=== PATIENT | female | born 1955 | race Caucasian/White ===

== ENCOUNTER → 2019-04-01 13:10 | Outpatient (CLI) | payer MEDICARE, MEDICAID, SELFPAY ==
[2019-04-01 14:09] LABS: Basophils # 0.1 K/mm3 (0-0.2); Basophils % 0.9 % (0.1-2.0); Eosinophils # 0.3 K/mm3 (0.0-0.4); Eosinophils % 5.7 % (0.1-12.0); Hematocrit 44.3 % (37.0-47.0); Hemoglobin 14.4 g/dL (12.2-16.2); Lymphocytes # 1.3 K/mm3 (0.7-4.5); Lymphocytes % 23.4 % (10-50); Mean Corpuscular HGB Conc 32.5 g/dL (31.8-35.4); Mean Corpuscular Hemoglobin 31.3 pg (27.0-31.2); Mean Corpuscular Volume 96.5 fl (81-99); Mean Platelet Volume 9.2 fl (7.4-10.4); Monocytes # 0.2 K/mm3 (0.1-1.0); Neutrophils # 3.6 K/mm3 (1.8-7.8); Platelet Count 232 K/mm3 (142-424); Red Blood Count 4.59 M/mm3 (4.20-5.40); Red Cell Distribution Width 13.4 % (11.5-17.5); White Blood Count 5.5 K/mm3 (4.8-10.8)
[2019-04-01 14:18] LABS: Alanine Aminotransferase 19 U/L (12-78); Albumin Level 4.1 gm/dL (3.4-5.0); Albumin/Globulin Ratio 1.1 (1.1-1.8); Alkaline Phosphatase 134 U/L (46-116); Anion Gap 12.5 mEq/L (5-15); Aspartate Amino Transferase 28 U/L (15-37); Bilirubin,Total 0.4 mg/dL (0.2-1.0); Blood Urea Nitrogen 11 mg/dL (7-18); Calcium 9.1 mg/dL (8.5-10.1); Carbon Dioxide 30 mmol/L (21.0-32.0); Chloride 106 mmol/L (98-107); Chol/HDL Ratio 3.9 (1-3.5); Cholesterol 191 mg/dL (140-200); Creatinine,Serum 0.85 mg/dL (0.55-1.02); Estimated Glomerular Filt Rate 67 ml/min (>60); Free T4 (Free Thyroxine) 0.95 ng/dl (0.76-1.46); GFR (African American) 81 ML/MIN (>60); Globulin 3.7 gm/dl (1.3-3.2); Glucose 83 mg/dL (74-106); HDL Cholesterol 49 mg/dL (29-89); LDL Cholesterol 118 mg/dL (0-130); Potassium 3.5 mmoL/L (3.5-5.1); Sodium 145 mmol/L (136-145); Thyroid Stimulating Hormone 2.54 uIU/ml (0.358-3.740); Total Protein,Serum 7.8 gm/dL (6.4-8.2); Triglycerides 119 mg/dL (30-200); VLDL Cholesterol 24 mg/dL (0-40)
[2019-04-01 14:39] LABS: Erythrocyte Sedimentation Rate 60 mm/hr (0-30)
[2019-04-02 10:49] LABS: Vitamin D 25 Hydroxy 8.7 ng/mL (30.0-100.0)
== END ==
PROVIDERS: Visit Provider Emergency Medicine
DX: R53.83 Other fatigue (principal); E78.5 Hyperlipidemia, unspecified; R41.3 Other amnesia; R59.9 Enlarged lymph nodes, unspecified; E55.9 Vitamin D deficiency, unspecified
CPT/HCPCS: 80053; 80061; 82652; 84439; 84443; 85025; 85651; 87086

== ENCOUNTER → 2019-04-04 10:25 | Outpatient (CLI) | payer MEDICARE, MEDICAID, SELFPAY ==
--- NOTE | 2019-04-04 10:25 | CT_ITS ---
PROCEDURE: CT SOFT TISSUE NECK W CON CLINICAL HISTORY: abnormal lymph nodes in neck Lymphadenopathy COMPARISON: No exams were available for comparison TECHNIQUE: Oral Contrast: None IV Contrast: 75 mL Optiray 350 Axial images obtained with sagittal and coronal reformats. All CT scans at the facility use one or more dose reduction, viz: automated exposure control, ma/kV adjustment per patient size (including targeted exams where dose is matched to indication, i.e. head), or iterative reconstruction technique. FINDINGS: There is some increased soft tissue density in the left nasopharyngeal region with obliteration of the left fossa of Rosenmuller. Direct visualization is suggested. Cannot exclude the possibility of a mucosal lesion at this area. There is some generalized motion artifact which does somewhat obscure fine detail. The oropharynx, epiglottis, and glottic region have an unremarkable appearance. There is a 7 mm hypodense nodule within the left aspect of the thyroid gland may be due to small cyst. A BB is placed along the left aspect of the neck to jigar the area of palpable abnormality. Deep to the placed BB is a 1.6 by 1 cm partially calcified soft tissue nodule with some stippled calcifications consistent with a lymph node. A larger node is present in the jugular digastric region of the left neck. The definite measurements are difficult to obtain due to patient movement. The node is felt to at least measure 1.8 x 1.8 cm and does contain some stippled calcification. There are mildly prominent submandibular nodes on the left as well measuring up to 1.4 cm. There is a small right submandibular lymph node measuring 1.4 by 0.8 cm. A normal left submandibular gland is not identified and 1 of the nodules in the submandibular region could even represent a submandibular gland. Lung apices are clear. IMPRESSION: 1. Increased soft tissue density in the nasopharynx on the left. Neoplasm is a consideration and direct visualization is suggested. 2. There are scattered mildly prominent lymph nodes in the left neck as described above. Some of these contain calcification. Differential diagnosis would include metastatic disease such is squamous cell carcinoma or thyroid carcinoma. Treated lymphoma can also cause calcified nodes. Inflammatory or infectious process is also consideration. Suggest evaluation of the nasopharyngeal abnormality on the left. If this is inconclusive then, fine needle aspiration could be performed of 1 of the nodes with ultrasound guidance. Dictated by: Gianfranco Camarena MD 04/05/2019 11:37 Electronically signed by Gianfranco Camarena MD in [facility] 04/05/2019 11:37
--- NOTE | 2019-04-04 10:25 | CT_ITS ---
PROCEDURE: CT HEAD/BRAIN WO CON CLINICAL INDICATION: memory loss COMPARISON: No exams were available for comparison TECHNIQUE: Axial images obtained with sagittal and coronal reformats. All CT scans at the facility use one or more dose reduction, viz: automated exposure control, ma/kV adjustment per patient size (including targeted exams where dose is matched to indication, i.e. head), or iterative reconstruction technique. FINDINGS: No midline shift, mass effect, intracranial hemorrhage, hydrocephalus, or extra-axial fluid collection is evident. The basilar cisterns are mildly prominent. The ventricular system is normal. The sylvian fissures and cortical sulci are somewhat prominent. There are no significant chronic ischemic white matter changes noted. The calvarium has an unremarkable appearance. No mastoid effusion. No sinus air-fluid level. IMPRESSION: Findings of moderate but likely age-appropriate cortical atrophy, no acute intracranial pathology noted Dictated by: Dr. Tai Gallegos MD 04/04/2019 11:[address] Tai Gallegos MD in [facility] 04/04/2019 11:30
== END ==
PROVIDERS: PCP Emergency Medicine; Visit Provider Emergency Medicine
DX: R59.9 Enlarged lymph nodes, unspecified (principal); R41.3 Other amnesia
CPT/HCPCS: 70450; 70491; Q9967

== ENCOUNTER 2020-03-22 19:27 | Emergency (ER) | payer MEDICARE, MEDICAID, SELFPAY ==
[2020-03-22 19:52] VITALS: BP 135/76; PULSE 104; RESP 16; TEMP 36.6; O2SAT 98; BMI 20.9
--- NOTE | 2020-03-22 19:56 | XR_ITS ---
PROCEDURE: XR PELVIS 1-2V CLINICAL INDICATION: groin pain COMPARISON: No exams were available for comparison TECHNIQUE: XR Pelvis AP View FINDINGS: No fracture or dislocation is evident. There are mild osteoarthritic changes of the hips No lytic or blastic change. IMPRESSION: Mild osteoarthritis of the hips otherwise negative Dictated by: Gianfranco Camarena MD 03/22/2020 22:20 Gianfranco Camarena MD in [facility] 03/22/2020 22:20
--- NOTE | 2020-03-22 19:56 | XR_ITS ---
PROCEDURE: XR KNEE LT 3V CLINICAL INDICATION: bruise to leg, no known origin COMPARISON: No exams were available for comparison FINDINGS: No obvious fracture or dislocation. Mild osteoarthritic changes are present involving all 3 compartments. Other findings:There is a subcortical lucency involving the proximal tibia centrally well-circumscribed measuring 14 mm and may represent a subchondral cyst/geode. Consider follow-up to confirm stability. IMPRESSION: Mild osteoarthritis of the right knee. Nonspecific benign-appearing cystic lesion proximal tibia centrally Dictated by: Gianfranco Camarena MD 03/22/2020 22:19 Gianfranco Camarena MD in [facility] 03/22/2020 22:19
[2020-03-22 19:59] LABS: Microscopic, Urine URINE MICROSCOPIC (MICROSCOPIC)
[2020-03-22 20:05] LABS: Appearance,Urine CLEAR (Clear); Bilirubin,Urine Negative (Negative); Blood, Urine 2+ (Negative); Color,Urine DK YELLOW (Yellow); Glucose,Urine (UA) Negative (Negative); Ketones,Urine Negative (Negative); Leukocyte Esterase,Urine TRACE (Negative); Nitrate,Urine Negative (Negative); Protein,Urine 2+ (Negative); Specific Gravity, Urine >= 1.030 (1.005-1.030)
--- NOTE | 2020-03-22 20:11 | [facility].EDGENADL ---
ED Disposition Clinical Impression: Bilateral groin pain UTI (urinary tract infection) Qualifiers: Urinary tract infection type: acute cystitis Hematuria presence: without hematuria Qualified Code(s): N30.00 - Acute cystitis without hematuria Disposition: Home, Self-Care Condition on Discharge: Good Instructions: DI for Urinary Tract Infection (UTI) Additional Instructions: fluids and use meds and call pcp for urine culture results Prescriptions: levoFLOXacin [Levaquin 500mg tab] 500 mg PO DAILY #7 tab Transmission Status: Sent to [facility] #[id number] Referrals: Julio Giron MD [Primary Care Provider] - - Critical Care Critical Care Time: No Attestation: On 03/22/20, the high probability of a clinically significant, sudden or life threatening deterioration of the following system(s) required my full and direct attention, intervention and personal management. The time I documented below is in addition to time spent performing reported procedures but includes the following listed in this critical care notation. Medical Decision Making - Medical Records Medical records reviewed: Yes: I reviewed the patient's medical records. - Malcolm Inquiry Pt receiving controlled substance: No Vital Signs: 03/22/20 19:52 Temperature 97.8 F Temperature Source Oral Pulse Rate [Right Brachial] 104 H Respiratory Rate 16 Blood Pressure [Right Arm] 135/76 Blood Pressure Mean [Right Arm] 95 Blood Pressure Source [Right Arm] Automatic Cuff Blood Pressure Position [Right Arm] Sitting 02 Sat by Pulse Oximetry 98 Oxygen Delivery Method Room Air - Lab Data Lab results reviewed: Yes: I reviewed the patient's lab results. Lab Results 03/22/20 19:43: Urine Color Dk yellow, Urine Appearance Clear, Urine pH 6.0, Ur Specific Marshall >= 1.030, Urine Protein 2+, Urine Glucose (UA) Negative, Urine Ketones Negative, Urine Blood 2+, Urine Nitrate Negative, Urine Bilirubin Negative, Urine Urobilinogen 1.0, Ur Leukocyte Esterase Trace, Urine RBC 10-20, Urine WBC Tntc, Ur Squamous Epith Cells 5-10, Urine Bacteria 4+ Orders (Tests/Meds): ORDERS Category Date Time Status CT abdomen pelvis wo con Stat Cat Scan 03/22/20 20:14 Ordered Knee XR left 3 views [XR knee LT 3V] Stat Exams 03/22/20 19:56 Taken XR lumbar spine 1V Routine Exams 03/22/20 20:30 Taken XR lumbar spine min 4V Stat Exams 03/22/20 20:36 Taken XR pelvis 1-2V Stat Exams 03/22/20 19:56 Taken XR pelvis 1-2V Stat Exams 03/22/20 20:36 Taken Complete Blood Count Auto Diff Stat Lab 03/22/20 19:57 Ordered Comprehensive Metabolic Panel Stat Lab 03/22/20 19:57 Ordered Urine Culture Stat Micro 03/22/20 19:43 Received - Radiology Data #1 Image(s): L-Spine, Pelvis, Knee Image Reviewed: Yes I reviewed the patient's radiology image Preliminary Findings: No Fracture Seen General Adult HPI - General Chief complaint: PAIN Stated complaint: Difficulty walking, pain between legs Time Seen by Provider: 03/22/20 20:00 Mode of Arrival: Family Vehicle Source of Information: Patient, Relative, Medical Record Limitations: No Limitations Description of Symptoms (Recalled from ER Triage Doc. by RN): pt presents with groin pain after cleaning water out of her basement; denies history of falls, daughter thinks she might have pulled a muscle. history of dementia and refusing all blood work and needlesticks. urine given. no additional complaints - History of Present Illness HPI narrative: over the last few days has bilat inner atraumatic groin pain - no fever or hematuria - has dementia Onset (ago): hour(s) Location: pelvis Radiation: non-radiation Severity: moderate Associated symptoms: denies other symptoms Treatments prior to arrival: none - Related Data Previous Rx's Medication Instructions Recorded levoFLOXacin [Levaquin 500mg 500 mg PO DAILY #7 tab 03/22/20 tab] Allergies Allergy/AdvReac Type Severity Reaction Status D
[2020-03-22 20:12] LABS: Bacteria,Urine 4+ /lpf; WBC,Urine TNTC #/hpf (0-3)
--- NOTE | 2020-03-22 20:30 | XR_ITS ---
PROCEDURE: XR LUMBAR SPINE 1V CLINICAL INDICATION: Low back pain COMPARISON: No exams were available for comparison FINDINGS: There is mild degenerative disc disease at L3-L4 and L4-5. There is 5 mm anterolisthesis of L4. Facet arthritic changes are present at L4-5 and L5-S1. IMPRESSION: Degenerative changes as described above Dictated by: Gianfranco Camarena MD 03/23/2020 06:14 Gianfranco Camarena MD in [facility] 03/23/2020 06:14
[2020-03-22 21:25] VITALS: BP 113/75; PULSE 81; RESP 15; TEMP 36.7; O2SAT 99
--- NOTE | 2020-03-23 10:35 | SW/DCPLANNER ---
Addendum entered by Lia Tam 03/25/20 11:37: Makayla from [facility] has called back stating they have no beds at this time will keep the referral for when a bed comes open. I did call and inform patients daughter (Georgia) and she stated that she would like for me to fax information to [place] [facility] and she would follow up with facilities later this afternoon. Original Note: Patient presented to ED last night 03/22 for UTI and daughter expressed an interest in placement for this patient per Dr Giron. I called and spoke with patients daughter (Georgia Banks [phone] and [phone]) regarding placement for this patient. Georgia stated that patient has dementia and has had issues with falling at home. Georgia stated that they are interested in [facility] at this time. I have faxed referral (demographics and ED note) to Makayla at [facility]. I have asked Makayla to follow up with me and Georgia once patient information is reviewed. Patient did discharge back home from the ED last night.
== END 2020-03-22 21:27 | disposition home or self-care (01) ==
PROVIDERS: Emergency Provider Emergency Medicine; PCP Emergency Medicine
DX: N30.00 Acute cystitis without hematuria (principal); F03.90 Unspecified dementia, unspecified severity, without behavioral disturbance, psychotic disturbance, mood disturbance, and anxiety; F17.210 Nicotine dependence, cigarettes, uncomplicated; F41.8 Other specified anxiety disorders
CPT/HCPCS: 72020; 72110; 72170; 73562; 81001; 87086; 87088; 87186; 99282

== ENCOUNTER 2020-08-03 16:32 | Emergency (ER) | payer MEDICARE, MEDICAID, SELFPAY ==
[2020-08-03 16:32] VITALS: BP 145/93; PULSE 96; RESP 18; TEMP 37.5; O2SAT 98; BMI 24.0
--- NOTE | 2020-08-03 16:33 | XR_ITS ---
PROCEDURE: XR SHOULDER RT MIN 2V CLINICAL INDICATION: pain Right shoulder pain COMPARISON: No exams were available for comparison FINDINGS: No fracture or dislocation. No lytic or blastic change. There is normal mineralization. There are minimal osteoarthritic changes at the glenohumeral joint with subacromial stenosis which may result in impingement symptomatology. No significant osteoarthritic change of the AC joint. Other findings:Possible right lower lobe infiltrate with increased density in the right lower lobe. 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
--- NOTE | 2020-08-03 16:33 | XR_ITS ---
PROCEDURE: XR CHEST PORTABLE CLINICAL HISTORY: cp Chest pain COMPARISON: No exams were available for comparison FINDINGS: The cardiomediastinal silhouette and pulmonary vascularity are within normal limits. Increased density is present in the right lower lobe and to lesser degree in the left lower lobe. Upper lobes are clear. No acute bony abnormalities. IMPRESSION: Bibasilar infiltrates Dictated by: Gianfranco Camarena MD 08/03/2020 19:42 Gianfranco Camarena MD in [facility] 08/03/2020 19:42
--- NOTE | 2020-08-03 16:33 | ECG_ITS ---
APPROVED REPORT Exam: Resting ECG HR:91 bpm ECG Measurements Heart Rate 91 AXES VA 106 P 54 QRSd 76 QRS -1 QT 368 T -7 QTc 452 Conclusion Sinus rhythm with short VA RSR' or QR pattern in V1 suggests right ventricular conduction delay Minimal voltage criteria for LVH, may be normal variant Nonspecific ST and T wave abnormality Abnormal ECG Electronically signed by : Gavin Goldstein, 08/04/2020 05:55:50
--- NOTE | 2020-08-03 16:44 | PC.NURSE ---
pt is refusing IV, refusing blood draw. Pt has hx of dementia, pt is alert, oriented to person, place and situation. Pt daughter is wanting staff to hold pt down to get pt blood, explained to pt daughter that we can not hold pt down to get blood draw.
--- NOTE | 2020-08-03 17:07 | HMH.EDGENADL ---
ED Disposition Clinical Impression: Oral-mouth cancer Chest pain Qualifiers: Chest pain type: unspecified Qualified Code(s): R07.9 - Chest pain, unspecified Dementia Qualifiers: Dementia type: unspecified type Dementia behavioral disturbance: with behavioral disturbance Qualified Code(s): F03.91 - Unspecified dementia with behavioral disturbance Disposition: Home, Self-Care Condition on Discharge: Good Instructions: DI for Chest Pain Additional Instructions: Additional instructions for CHEST PAIN: See your physician as soon as possible for further evaluation. Return immediately if worsening chest pain, vomiting, shortness of breath, fever, coughing of blood. Referrals: Julio Giron MD [Primary Care Provider] - - Critical Care Critical Care Time: No Attestation: On , the high probability of a clinically significant, sudden or life threatening deterioration of the following system(s) required my full and direct attention, intervention and personal management. The time I documented below is in addition to time spent performing reported procedures but includes the following listed in this critical care notation. Medical Decision Making - Malcolm Inquiry Pt receiving controlled substance: No Vital Signs: 08/03/20 16:32 Temperature 99.5 F Temperature Source Temporal Artery Scan Pulse Rate [Right Radial] 96 H Respiratory Rate 18 Blood Pressure [Right Arm] 145/93 H Blood Pressure Mean [Right Arm] 110 Blood Pressure Source [Right Arm] Automatic Cuff Blood Pressure Position [Right Arm] Sitting 02 Sat by Pulse Oximetry 98 Oxygen Delivery Method Room Air - Lab Data Lab Results 08/03/20 18:11: Troponin I < 0.01 08/03/20 18:11: Sodium 136, Potassium 3.2 L, Chloride 100, Carbon Dioxide 29, Anion Gap 10.2, BUN 26 H, Creatinine 1.10 H, Estimated Creat Clear 50, Estimated GFR 50 L, Est GFR ( Amer) 60, Glucose 104 H, Calcium 9.0 Result diagrams: 08/03/20 18:11 Orders (Tests/Meds): ORDERS Category Date Time Status XR chest portable Stat Exams 08/03/20 16:33 Taken XR shoulder RT min 2V Stat Exams 08/03/20 16:33 Taken Complete Blood Count Auto Diff Stat Lab 08/03/20 18:11 Received D-Dimer Stat Lab 08/03/20 18:54 Ordered Troponin I Q3H Lab 08/03/20 19:45 Ordered Troponin I Q3H Lab 08/03/20 22:45 Ordered - ECG Data Tracing #1 EKG interpreted by Lorenzo Moe MD: Rhythm: sinus Rate: 91 Higginson: normal Ectopy: none Conduction: Incomplete right bundle branch block ST Segment Changes: Nonspecific T Wave Changes: Nonspecific Q Waves: none No evidence of acute ischemia or injury Voltage criteria for LVH Baseline artifact and wander present, but I consider the EKG adequate for accurate interpretation. Medical Decision Narrative: The patient initially refused any blood work from our nursing staff. Laboratory was able to get a small amount of blood from her. An IV was not able to be established. I raised the possibility of pulmonary embolism with the sisters. She has a mildly abnormal chest x-ray with blunting of the right costophrenic angle of uncertain duration, no old x-rays for comparison. I discussed doing a D-dimer as a screening test and if this were negative she may not need an IV or CT angiogram. However, the lab did not have enough blood to do this test. When laboratory coordinator return, the patient refuses any further blood draws or IVs. This would also include a second troponin. I then discussed with sister again a plan from this point. Her EKG was unremarkable, troponin was negative. They do not want any further work-up done at this point. They state that this is the usual pattern of her healthcare contacts. Encounters. They said that they will return if she worsens and otherwise will follow up with Dr. Giron. General Adult HPI - General Chief complaint: PAIN Stated complaint: CP Time Seen by Provider: 08/03/20 18:45 Mode of Arrival: Ambulator
--- NOTE | 2020-08-03 17:30 | PC.NURSE ---
Pt other daughter at BS at this time, she is aware that pt has refused blood work. ER is aware that pt is refusing blood work, no further orders at this time. will continue to monitor
--- NOTE | 2020-08-03 18:12 | PC.NURSE ---
network technology instructor at bedside getting blood.
[2020-08-03 18:36] LABS: Chloride 100 mmol/L (98-107); Sodium 136 mmol/L (136-145)
[2020-08-03 18:37] LABS: Potassium 3.2 mmoL/L (3.5-5.1)
[2020-08-03 18:39] LABS: Blood Urea Nitrogen 26 mg/dl (7-17); Creatinine Clearance Estimated 50 mL/min (50-200); Estimated Glomerular Filt Rate 50 ml/min (>60); GFR (African American) 60 ML/MIN (>60)
[2020-08-03 18:40] LABS: Anion Gap 10.2 mEq/L (5-15); Carbon Dioxide 29 mmol/L (22.0-30.0); Glucose 104 mg/dl (74-100)
[2020-08-03 18:53] LABS: Troponin I < 0.01 ng/ml (0.00-0.034)
--- NOTE | 2020-08-03 19:09 | PC.NURSE ---
Lab at bedside
[2020-08-03 19:41] LABS: Basophils % 0.2 % (0.1-2.0); Hematocrit 38.9 % (37.0-47.0); Hemoglobin 12.7 g/dL (12.2-16.2); Lymphocytes # 1.1 K/mm3 (0.7-4.5); Lymphocytes % 5.8 % (10-50); Mean Corpuscular HGB Conc 32.7 g/dL (31.8-35.4); Mean Corpuscular Hemoglobin 30.2 pg (27.0-31.2); Mean Corpuscular Volume 92.3 fl (81-99); Mean Platelet Volume 7.9 fl (7.4-10.4); Monocytes # 0.5 K/mm3 (0.1-1.0); Monocytes % 2.4 % (1.7-9.3); Neutrophils # 16.8 K/mm3 (1.8-7.8); Neutrophils % 91.6 % (37.0-80.0); Platelet Count 209 K/mm3 (142-424); Red Blood Count 4.21 M/mm3 (4.20-5.40); Red Cell Distribution Width 13.5 % (11.5-17.5); White Blood Count 18.3 K/mm3 (4.8-10.8)
[2020-08-03 19:45] LABS: MANUAL DIFFERENTIAL MANUAL DIFFERENTIAL (MANUAL DIFF)
[2020-08-03 19:51] VITALS: BP 140/73; PULSE 90; RESP 18; TEMP 37.5; O2SAT 98
[2020-08-03 20:13] LABS: Lymphocytes % 9 % (10-50); Monocytes % 3 % (2-9); Neutrophils % 83 % (42-76); Platelet Estimate Normal; RBC Morphology Normal; Total Cells Counted 100
== END 2020-08-03 19:51 | disposition home or self-care (01) ==
PROVIDERS: Emergency Provider Emergency Medicine; PCP Emergency Medicine
DX: R07.89 Other chest pain (principal); F03.91 Unspecified dementia, unspecified severity, with behavioral disturbance; F41.8 Other specified anxiety disorders; C06.9 Malignant neoplasm of mouth, unspecified; F17.210 Nicotine dependence, cigarettes, uncomplicated; Z79.899 Other long term (current) drug therapy
CPT/HCPCS: 36415; 71045; 73030; 80048; 84484; 85007; 85025; 93005; 99282